=== PATIENT | male | born 1980 | race Caucasian/White ===

== ENCOUNTER 2018-06-15 11:29 | Emergency (ER) | payer SELFPAY ==
[2018-06-15 11:36] VITALS: BP 123/80
--- NOTE | 2018-06-15 12:17 | ER Document Report ---
HPI - HPI Pain Level: 5 Notes: Patient is a 37-year-old male no significant past medical history presents to the ED complaining of a rash intermittently to his hands over the last couple months. 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 Patient states his dog is also running around to the leads. Patient states that the rash on his hands to itch and he has noticed some clear vesicles on occasion, but none recently. He has been using some over-the- counter steroid cream with minimal relief. He has not noticed any redness or purulent drainage from his hands. Patient states that he also has a rash to his waistband anteriorly that will occasionally cause discomfort, but has not turned into an abscess or have any drainage. Denies any drug allergies. No other concerns or complaints. Denies any headache, fever, neck pain, URI, sore throat, chest pain, palpitations, syncope, cough, shortness of breath, wheeze, dyspnea, abdominal pain, nausea/vomiting/diarrhea, urinary retention, dysuria, hematuria, numbness/tingling, joint pains, muscle paralysis/weakness. - ROS Systems Reviewed and Negative: Yes All other systems reviewed and negative Past Medical History - Social History Smoking Status: Unknown if Ever Smoked Family History: Reviewed & Not Pertinent Patient has suicidal ideation: No Patient has homicidal ideation: No Renal/ Medical History: Denies: Hx Peritoneal Dialysis Vertical Provider Document - CONSTITUTIONAL Agree With Documented VS: Yes Notes: PHYSICAL EXAMINATION: GENERAL: Well-appearing, well-nourished and in no acute distress. HEAD: Atraumatic, normocephalic. EYES: Pupils equal round and reactive to light, extraocular movements intact, sclera anicteric, conjunctiva are normal. ENT: EAC clear b/l. TM's intact b/l without erythema, fluid, or perforation. Nares patent and without discharge. oropharynx clear without exudates. No tonsilar hypertrophy or erythema. Moist mucous membranes. No sinus tenderness. NECK: Normal range of motion, supple without lymphadenopathy LUNGS: Breath sounds clear to auscultation bilaterally and equal. No wheezes rales or rhonchi. HEART: Regular rate and rhythm without murmurs, rubs, gallops. ABDOMEN: Soft, nontender, nondistended abdomen. No guarding, no rebound. No masses appreciated. Normal bowel sounds present. No CVA tenderness bilaterally. Musculoskeletal: FROM to passive/active. Strength 5+/5. Extremities: No cyanosis, clubbing, or edema b/l. Peripheral pulses 2+. Capillary refill less than 3 seconds. NEUROLOGICAL: Cranial nerves grossly intact. Normal speech, normal gait. Normal sensory, motor exams PSYCH: Normal mood, normal affect. SKIN: hands b/l: there is a maculopapular skin colored rash to the hands. Non- tender. + small vesicle noted. No streaks, fluctuance, or induration. Lower abd anteriorly: + folliculitis w/o any abscess, induration, or streaks. Non-tender. - INFECTION CONTROL TRAVEL OUTSIDE OF THE [place] IN LAST 30 DAYS: No Course - Re-evaluation Re-evalutation: 06/15/18 12:15 Patient is an afebrile, well-hydrated, 37-year-old male who presents to the ED with folliculitis in his lower abdomen as well as dermatitis to his hands, possible contact from plant. Vitals are acceptable without any significant tachycardia, tachypnea, or hypoxia. PE is otherwise unremarkable. No labs or imaging warranted at this time based on H&P. Low suspicion for any necrotizing fasciitis, Lyme, sjs, sepsis, or other acute systemic condition at this time. Patient to monitor symptoms for acute changes and seek medical attention if so. I will send him home with a prescription for Keflex, steroid taper, and triamcinolone cream. Patient to use triple antibiotic ointment as well. Recheck with your PCM in 3-5 days. Consider consult a regional safety manager if needed. Return to the ED with any worsening/concerning symptoms otherwise as reviewed in discharge. Patient is in agreement. - Vital Signs Vital signs: Temp Pulse Resp BP Pulse Ox 98.9 F 74 18 123/80 96 06/15/18 11:34 06/15/18 11:34 06/15/18 11:34 06/15/18 11:34 06/15/18 11:34 Discharge - Discharge Clinical Impression: Rash and nonspecific skin eruption, Folliculitis Condition: Stable Disposition: HOME, SELF-CARE Instructions: Folliculitis ([facility]) Additional Instructions: Keep the skin clean Wash with soap and water Tylenol/ibuprofen if needed Triple antibiotic ointment daily over abdomen Take medication as directed Monitor for any worsening symptoms Recheck with your PCM in 3-5 days Consider consult with Dermatology for ongoing/worsening symptoms Return to the ED with any worsening symptoms and/or development of fever, headache, chest pain, palpitations, syncope, shortness of breath, trouble breathing, abdominal pain, n/v/d, abscess, purulent discharge, red streaks, worsening swelling, or other worsening symptoms that are concerning to you. Prescriptions: Cephalexin Monohydrate [Keflex 500 mg Capsule] 500 mg PO TID #21 capsule Prednisone 20 mg PO ASDIR #18 tablet Triamcinolone Acetonide [Aristocort 0.5% Cream 15 gm] 1 applic TP BID #1 tube Referrals: WAYLON LAKHANI DO [ACTIVE STAFF] - Follow up as needed
== END 2018-06-15 12:22 | disposition home or self-care (01) ==
LOC: ER 11:29
DX: L30.9 Dermatitis, unspecified (principal); L73.9 Follicular disorder, unspecified
CPT/HCPCS: 99282